=== PATIENT | female | born 1995 | race American Indian/Alaskan Native ===

== ENCOUNTER 2021-01-11 17:15 | Emergency (ER) | payer SELFPAY ==
[2021-01-11 18:06] VITALS: BP 115/71
--- NOTE | 2021-01-11 20:32 | Emergency Department Report ---
ED Female HPI - General Chief complaint: Urogenital-Female Stated complaint: PRIVATE AREA PAIN Time Seen by Provider: 01/11/21 20:25 Source: patient Mode of arrival: Ambulatory Limitations: No Limitations - History of Present Illness Initial comments: 25-year-old female presents to the ER today with complaints of vaginal irritation. Patient states that she noticed some bumps to the vaginal area 3 days ago. She states that she has had similar bumps in the past and typically related to razor bumps, but she states that she started doing research on [employer] and she became concerned for possible herpes. She also reports that she has noticed 2 cuts to her vaginal area, which she assumed was related to her wiping too frequently but she is not quite sure. She states that she has a history of chronic vaginal itching, nothing worse recently. She denies any apparent vaginal discharge. She denies any pelvic or lower abdominal pain. She is currently on her menstrual cycle. She is not a control. She does admit to having new sexual partners, most recent was this past October and she has also been involved in a three-some. Complaint: other (vaginal irritation, bumps, cuts on vaginal area ) -: days(s) ED Review of Systems ROS: Stated complaint: PRIVATE AREA PAIN Other details as noted in HPI Comment: All other systems reviewed and negative Constitutional: denies: chills, fever Eyes: denies: eye pain, eye discharge, vision change ENT: denies: ear pain, throat pain, dental pain, hearing loss Respiratory: denies: cough, shortness of breath, SOB with exertion, SOB at rest, wheezing Cardiovascular: denies: chest pain, palpitations Gastrointestinal: denies: abdominal pain, nausea, diarrhea, constipation, hematemesis, melena, hematochezia Genitourinary: other (vaginal rash, irritation). denies: urgency, dysuria, frequency, hematuria, discharge, abnormal menses, dyspareunia Musculoskeletal: denies: back pain, joint swelling, arthralgia Neurological: denies: headache, weakness, numbness, paresthesias, confusion, abnormal gait, vertigo Psychiatric: denies: anxiety, depression, auditory hallucinations, visual hallucinations, homicidal thoughts, suicidal thoughts Hematological/Lymphatic: denies: easy bleeding, easy bruising, swollen glands ED Physical Exam - General Limitations: No Limitations General appearance: alert, in no apparent distress - Head Head exam: Present: atraumatic, normocephalic, normal inspection - Eye Eye exam: Present: normal appearance, PERRL, EOMI Pupils: Present: normal accommodation - Neck Neck exam: Present: normal inspection, full ROM - Respiratory Respiratory exam: Present: normal lung sounds bilaterally. Absent: respiratory distress, wheezes, rales - Cardiovascular Cardiovascular Exam: Present: regular rate, normal rhythm, normal heart sounds - GI/Abdominal GI/Abdominal exam: Present: soft. Absent: distended, tenderness, guarding, rebound - External exam: Present: lesions (small pupular rash noted pubic area likely related to shaving ), bleeding (pt currently on her MC), other (environmental intern present) Speculum exam: Present: normal speculum exam, vaginal bleeding. Absent: erythema, vaginal discharge Bi-manual exam: Present: normal bi-manual exam - Neurological Exam Neurological exam: Present: alert, oriented X3, CN II-XII intact, normal gait - Psychiatric Psychiatric exam: Present: normal affect, normal mood ED Course Vital Signs 01/11/21 18:05 Temperature 98.1 F Pulse Rate 65 Respiratory 14 Rate Blood Pressure 115/71 [Right] O2 Sat by Pulse 100 Oximetry ED Medical Decision Making - Medical Decision Making Patient presents with main concern for a rash to the vaginal area. She states that she has had this rash off and on, assume that it was related to razor bumps, but did research online and she became concerned for genital herpes. Physical exam does not suggest that he herpetic rash or syphilis, she has a nonspecific rash to her pubic area could be related to folliculitis from shaving or excessive use of her vaginally wipes. At this time there is no secondary bacterial infection or apparent yeast infection. Wet prep was unremarkable. Urinalysis negative for UTI. hCG negative. Patient states she is not concerned for GC and therefore prophylactic treatment was not provided. Discussed all results with patient. Discussed safe sex with patient. Should be given referral to [facility]. Patient expressed understanding and agree with plan. Patient was stable at time of discharge. Critical care attestation.: If time is entered above; I have spent that time in minutes in the direct care of this critically ill patient, excluding procedure time. ED Disposition Clinical Impression: Folliculitis Disposition: HOME / SELF CARE / HOMELESS Is pt being admited?: No Does the pt Need Aspirin: No Condition: Stable Instructions: Folliculitis, Safe Sex Additional Instructions: It is important that you try to avoid any excessive shaving or excessive use of vaginal wipes. It is also important that you practice safe sex. Follow-up with [facility] this point discharge instructions. Return to the ER if symptoms changes or worsens in any way. Referrals: [facility] [Provider Group] - 3-5 Days [facility] [Provider Group] - 3-5 Days Time of Disposition: 21:41
[2021-01-11 21:26] LABS: Bilirubin,Urine NEG (Negative); Blood,Urine NEG (Negative); Color,Urine Yellow (Yellow); Mucus,Urine 3+ /HPF; Protein,Urine <15 mg/dL mg/dL (Negative)
[2021-01-11 21:38] LABS: HCG Qualitative,Urine Negative (Negative)
== END 2021-01-11 21:53 | disposition home or self-care (01) ==
LOC: ED 17:15
DX: L73.9 Follicular disorder, unspecified (principal)
CPT/HCPCS: 81001; 81025; 87210; 99284

== ENCOUNTER 2021-05-04 00:37 | Emergency (ER) | payer SELFPAY ==
[2021-05-04 01:13] VITALS: BP 122/84
== END 2021-05-04 09:23 | disposition left against medical advice (07) ==
LOC: ED 00:37
DX: N89.8 Other specified noninflammatory disorders of vagina (principal); Z53.21 Procedure and treatment not carried out due to patient leaving prior to being seen by health care provider

== ENCOUNTER 2021-09-20 22:30 | Emergency (ER) | payer MEDICAID ==
[2021-09-20 23:11] VITALS: BP 125/71
--- NOTE | 2021-09-21 06:12 | Emergency Department Report ---
ED Female HPI - General Chief complaint: Urogenital-Female Stated complaint: VAGINAL CHECK Source: patient Mode of arrival: Ambulatory Limitations: No Limitations - History of Present Illness Initial comments: Patient is a nulliparous 26-year-old -[place] female who is sexually active presents to the ED with complaint of acute onset persistent vaginal discharge and vaginal bumps for the last 1 week. Patient denies dysuria, urinary frequency and urgency, chest pain, shortness of breath, fever, chills, nausea and vomiting, vaginal bleeding, hematuria, dyspareunia, low back pain, abdominal pain, or diarrhea. MD Complaint: vaginal discharge, other (Vaginal bumps) -: week(s) (1) Location: labia, other (vaginal) Radiation: non-radiating Severity: mild Severity scale (0 -10): 0 Consistency: constant Improves with: none Worsens with: none Are you Now?: No Last Menstrual Period: 09/14/21 EDC: 06/21/22 Associated Symptoms: denies other symptoms, vaginal discharge, rash (Mild vaginal rash). denies: vaginal bleeding, abdominal pain, nausea/vomiting, headaches, loss of appetite, dysuria, hematuria, shortness of breath, syncope, weakness - Related Data Sexually active: Yes : 0 Para: 0 A: 0 Previous Rx's Medication Instructions Recorded Last Taken Type Doxycycline Hyclate 100 mg PO Q12H #20 cap 09/21/21 Unknown Rx metroNIDAZOLE [Flagyl] 500 mg PO Q12HR #14 tab 09/21/21 Unknown Rx Allergies Allergy/AdvReac Type Severity Reaction Status Date / Time No Known Allergies Allergy Verified 09/20/21 23:10 ED Review of Systems ROS: Stated complaint: VAGINAL CHECK Other details as noted in HPI Constitutional: denies: chills, fever Eyes: denies: eye pain, eye discharge, vision change ENT: denies: ear pain, throat pain Respiratory: denies: cough, shortness of breath, wheezing Cardiovascular: denies: chest pain, palpitations Endocrine: no symptoms reported Gastrointestinal: denies: abdominal pain, nausea, vomiting, diarrhea Genitourinary: discharge, other (Vaginal itching). denies: urgency, dysuria Musculoskeletal: denies: back pain, joint swelling, arthralgia Skin: denies: rash, lesions Neurological: denies: headache, weakness, paresthesias Psychiatric: denies: anxiety, depression Hematological/Lymphatic: denies: easy bleeding, easy bruising ED Past Medical Hx - Medications Home Medications: Home Medications Medication Instructions Recorded Confirmed Last Taken Type Doxycycline Hyclate 100 mg PO Q12H #20 cap 09/21/21 Unknown Rx metroNIDAZOLE [Flagyl] 500 mg PO Q12HR #14 tab 09/21/21 Unknown Rx ED Physical Exam - General Limitations: No Limitations General appearance: alert, in no apparent distress - Head Head exam: Present: atraumatic, normocephalic, normal inspection - Eye Eye exam: Present: normal appearance, PERRL, EOMI Pupils: Present: normal accommodation - ENT ENT exam: Present: normal exam, normal orophraynx, mucous membranes moist, TM's normal bilaterally, normal external ear exam - Neck Neck exam: Present: normal inspection, full ROM. Absent: tenderness - Respiratory Respiratory exam: Present: normal lung sounds bilaterally. Absent: respiratory distress, wheezes, rales, chest wall tenderness, accessory muscle use, decreased breath sounds, prolonged expiratory - Cardiovascular Cardiovascular Exam: Present: regular rate, normal rhythm. Absent: systolic murmur, diastolic murmur, rubs, gallop - GI/Abdominal GI/Abdominal exam: Present: soft, normal bowel sounds. Absent: tenderness, guarding, rebound, hyperactive bowel sounds, hypoactive bowel sounds, organomegaly - Bi-manual exam: Present: other (Pelvic exam is deferred) - Extremities Exam Extremities exam: Present: normal inspection, full ROM, normal capillary refill. Absent: tenderness - Back Exam Back exam: Present: normal inspection, full ROM. Absent: tenderness, CVA tenderness (R), CVA tenderness (L), muscle spasm, paraspinal tenderness, vertebral tenderness - Neurological Exam Neurological exam: Present: alert, oriented X3, CN II-XII intact, normal gait, reflexes normal - Psychiatric Psychiatric exam: Present: normal affect, normal mood - Skin Skin exam: Present: warm, dry, intact, normal color. Absent: rash ED Course Vital Signs 09/20/21 22:31 Temperature 98 F Pulse Rate 97 H Respiratory 18 Rate Blood Pressure 125/71 [Left] O2 Sat by Pulse 98 Oximetry ED Medical Decision Making - Medical Decision Making This is a nulliparous 22-year-old -[place] female with no past medical history who presents to the ED complaining of a tampon stuck in her vagina for the last 8 hours. Patient states that she had the placed the tampon in her vagina but when she reached out to remove it she could not find it and therefore decided come to the ED for evaluation. In the ED, patient is alert and oriented x3 and is not in any distress. Patient is hemodynamically stable. Patient has chronic recurrent bacterial vaginosis. Patient was discharged home on medications and advised to follow-up with her primary care physician in 7 to 10 days for reevaluation return to the ED immediately if symptoms get worse. - Differential Diagnosis Bacterial vaginosis; STD; Destini vaginitis; Critical care attestation.: If time is entered above; I have spent that time in minutes in the direct care of this critically ill patient, excluding procedure time. ED Disposition Clinical Impression: Vaginal discharge, Bacterial vaginosis Disposition: 01 HOME / SELF CARE / HOMELESS Is pt being admited?: No Does the pt Need Aspirin: No Condition: Stable Instructions: Bacterial Vaginosis, [id number], Bacterial Vaginosis (ED) Additional Instructions: Take medication with food, drink plenty of fluids, follow-up with your primary care physician in 7 to 10 days for reevaluation. Return to the ED immediately if symptoms get worse Prescriptions: Doxycycline Hyclate 100 mg PO Q12H #20 cap metroNIDAZOLE [Flagyl] 500 mg PO Q12HR #14 tab Referrals: [facility] [Provider Group] - 7-10 days Forms: STI Treatment and Prevention Time of Disposition: 06:12 Print Language: GE[place]
== END 2021-09-21 07:30 | disposition home or self-care (01) ==
LOC: ED 22:30
DX: N76.0 Acute vaginitis (principal); B96.89 Other specified bacterial agents as the cause of diseases classified elsewhere; Z79.899 Other long term (current) drug therapy
CPT/HCPCS: 99282